=== PATIENT | female | born 1965 | race Caucasian/White ===

== ENCOUNTER 2017-08-10 14:17 | Inpatient (IN) ==
[2017-08-10] MEDS ORDERED: 0.9 % Sodium Chloride 1,000 ML IVC ONE (15:30)
[2017-08-10] MEDS ORDERED: *HR* FentaNYL (PF) 100 MCG/2 ML VIAL IVP ONE ×2 (15:30→16:58)
[2017-08-10] MEDS ORDERED: Ondansetron 4 MG/2 ML VIAL IVP ONE (15:30)
[2017-08-10] MEDS ORDERED: Isovue-370 500 ML INFUS..BTL IV ONE (15:32)
[2017-08-10 16:09] LABS: Basophils # 0.1 K/mcL (0.0-0.2); Basophils % 0.6 %; Eosinophils # 0.2 K/mcL (0.0-0.6); Eosinophils % 2.3 %; Hematocrit 33.5 % (35.3-44.9); Hemoglobin 10.8 g/dL (11.5-15.4); Immature Granulocytes % 0.7 % (0-4); Lymphocytes # 2.4 K/mcL (0.6-4.6); Lymphocytes % 27.3 %; Mean Corpuscular HGB Conc 32.2 g/dL (31.6-35.5); Mean Corpuscular Hemoglobin 28.1 pg (28.0-33.3); Mean Platelet Volume 11.2 fL (9.4-12.4); Monocytes # 0.7 K/mcL (0.0-1.3); Monocytes % 7.6 %; Neutrophils # 5.4 K/mcL (1.6-8.9); Platelet Count 230 K/mcL (140-400); Red Blood Count 3.85 M/mcL (3.82-4.97); Red Cell Distribution Width 14.2 % (11.5-14.5); Segmented Neutrophils % 61.5 %
[2017-08-10 16:28] LABS: Calcium 9.1 mg/dL (8.6-10.3); Potassium 5.2 mEq/L (3.5-5.1)
--- NOTE | 2017-08-10 16:40 | Emergency Department Note ---
Disposition Clinical Impression: Facial cellulitis, Hyperglycemia Disposition: Admitted As Inpatient Condition: Fair Referrals: Matilde Herbert MD [Primary Care Provider] - Forms: ED Satisfaction Letter Time of Disposition: 18:06 General Adult HPI - General Chief complaint: ED Skin/Abscess/Foreign Body Stated complaint: facial edema Time Seen by Provider: 08/10/17 14:47 Source: patient Limitations: no limitations Nursing Notes Reviewed: Yes Vital Signs Reviewed: Yes - History of Present Illness HPI Narrative: 52-year-old female history of insulin dependent diabetes, multiple previous abscesses, who presents complaining of erythema and swelling to her left lip and left naris patient states she has not of 10 pain, and her face. Patient states the pain is aching and dull. Patient says that she was seen by her primary care and placed on Bactrim about 2-3 days ago, she has been compliant with the pain and swelling is gone worse. She describes low-grade fevers and chills but no measured temperature. She is a history of abscesses, as a history of MRSA. Patient was transferred by private recommendation of her PCP for further evaluation, she did have blood work done yesterday that showed a mild leukocytosis 12.7, which had no blood cultures drawn, she did have a wound culture done she says. She describes no pus or purulent drainage at this time. She has no difficulty with swallowing although she does have some pain with swallowing, and trouble breathing. Onset (ago): hour(s) Location: face Pain Severity: moderate Pain Scale: 8 Quality: aching Improves with: nothing Associated symptoms: Denies: confusion, chest pain, cough, diaphoresis, nausea/ vomiting Treatments Prior to Arrival: other (Bactrim DS) - Related Data Home Medications Medication Instructions Recorded Confirmed Exenatide Microspheres [Bydureon 2 mg SQ QWEEK 08/10/17 08/10/17 Pen] Fenofibrate Nanocrystallized 160 mg PO DAILY 08/10/17 08/10/17 [Triglide] Furosemide [Lasix] 20 mg PO Q48H 08/10/17 08/10/17 Gabapentin [Neurontin] 300 mg PO TID PRN 08/10/17 08/10/17 Insulin ASPART [NovoLOG] 10 - 15 units SQ TIDWM 08/10/17 08/10/17 Insulin Glargine [Lantus] 100 units SQ BID 08/10/17 08/10/17 Losartan Potassium [Cozaar] 100 mg PO DAILY 08/10/17 08/10/17 Metoprolol Succinate 100 mg PO BID 08/10/17 08/10/17 Mupirocin [Bactroban Oint] 1 appl TP BID 08/10/17 08/10/17 Pramipexole Di-HCl [Pramipexole 0.125 mg PO DAILY 08/10/17 08/10/17 Dihydrochloride] Sulfamethoxazole/Trimeth DS 1 tab PO QID 08/10/17 08/10/17 [Bactrim Ds] Trazodone HCl 100 mg PO HS 08/10/17 08/10/17 amLODIPine [Norvasc] 5 mg PO DAILY 08/10/17 08/10/17 diazePAM [Valium] 5 mg PO BID 08/10/17 08/10/17 valACYclovir [Valtrex] 500 mg PO DAILY 08/10/17 08/10/17 Allergies Allergy/AdvReac Type Severity Reaction Status Date / Time codeine Allergy See Verified 08/10/17 17:20 Comments phenytoin [From Dilantin] Allergy Hives Verified 08/10/17 17:20 Erythromycin Base AdvReac Nausea Verified 08/10/17 17:20 All systems ED: reviewed and negative except as stated. Review of Systems: As Per HPI Constitutional: Denies: fever, chills Eyes: Denies: eye pain ENT ED: Reports: other (facial swelling lips). Denies: ear pain, throat pain Cardiovascular: Denies: chest pain, palpitations Respiratory: Denies: cough Gastrointestinal: Denies: abdominal pain, nausea Genitourinary: Denies: urgency Musculoskeletal: Denies: back pain Integumentary: Reports: as per HPI, rash Neurological: Denies: headache, weakness Past Medical History - Past Medical History Attestation: Yes The following information was validated with the patient. Source: patient Medical history: Reports: diabetes, fibromyalgia, hypertension, other Psychiatric history: Reports: anxiety - Social History Smoking Status: Never smoker Smokeless Tobacco Status: No Alcohol use: Reports: occasionally Drug use: Reports: none Physical Exam - General Limitations: no limitations General appearance: alert, anxious, obese - Head Head exam: atraumatic - Eye Eye exam: Present: normal appearance, PERRL. Absent: periorbital swelling - ENT ENT exam: normal exam, normal oropharynx - Expanded ENT Exam Nose/Mouth: 1 - erythema and moderate induration Mouth exam: Present: lip swelling, tongue normal. Absent: drooling, trismus - Neck Neck exam: Present: normal inspection, full ROM - Chest Chest inspection: Present: normal inspection, symmetric chest wall rise - Respiratory Respiratory exam: Present: normal lung sounds bilaterally. Absent: respiratory distress - Cardiovascular Cardiovascular exam: Present: regular rate, normal rhythm - Abdominal Exam Abdominal exam: Present: soft, Non-Tender - Extremities Exam Extremities exam: Present: normal inspection, full ROM - Skin Skin exam: Present: warm, erythema Course Course Narrative: Patient's a diabetic female with erythema to her left face, she has no evidence of odontogenic origin, there is a small excoriated area to the left naris, there is erythema to the left upper lip, given that this is in the concerning area for MRSA infections, and she has had a history of MRSA and is diabetic with poorly compliant and she has failed outpatient antibiotics, plan is for admission for cellulitis believe a CT scan and make sure there is no definitive abscess, plan for IV antibiotics vancomycin and Zosyn at this time. IVF, Labs. - Reevaluation(s) Reevaluation #1: Patient with no lactic acidosis mild hyper acute anemia, although her EKG has no definitive changes, the patient's no acute distress will not treat this at this time, answering vancomycin and Zosyn for cellulitis CT confirms no evidence of abscess, plan for admission at this time. Time: 18:05 Vital Signs Temperature 98.7 F 08/10/17 14:18 Pulse Rate 91 08/10/17 14:18 Respiratory Rate 15 08/10/17 14:18 Blood Pressure 126/67 08/10/17 14:18 O2 Sat by Pulse Oximetry 95 08/10/17 14:18 Temperature 98.7 F 08/10/17 14:45 Pulse Rate 100 08/10/17 15:02 Respiratory Rate 18 08/10/17 15:02 Blood Pressure 136/77 08/10/17 15:02 O2 Sat by Pulse Oximetry 96 08/10/17 15:02 Oxygen Delivery Oxygen Delivery Room Air Medical Decision Making - Medical Records Medical records reviewed: Yes I reviewed the patient's medical records. - Lab Data Lab results reviewed: Yes I reviewed the patient's lab results. Result diagrams: 08/10/17 15:57 08/10/17 15:57 Lab Results 08/10/17 08/10/17 08/10/17 Range/Units 15:57 15:57 15:57 WBC 8.8 (4.3-11.1) K/mcL RBC 3.85 (3.82-4.97) M/mcL Hgb 10.8 L (11.5-15.4) g/dL Hct 33.5 L (35.3-44.9) % MCV 87.0 (83.0-100.0) fL MCH 28.1 (28.0-33.3) pg MCHC 32.2 (31.6-35.5) g/dL RDW 14.2 (11.5-14.5) % Plt Count 230 (140-400) K/mcL MPV 11.2 (9.4-12.4) fL Immature Gran % 0.7 (0-4) % Seg Neutrophils % 61.5 % Lymphocytes % 27.3 % Monocytes % 7.6 % Eosinophils % 2.3 % Basophils % 0.6 % Neutrophils # 5.4 (1.6-8.9) K/mcL Lymphocytes # 2.4 (0.6-4.6) K/mcL Monocytes # 0.7 (0.0-1.3) K/mcL Eosinophils # 0.2 (0.0-0.6) K/mcL Basophils # 0.1 (0.0-0.2) K/mcL Sodium 130 L (136-145) mEq/L Potassium 5.2 H (3.5-5.1) mEq/L Chloride 99 (98-107) mEq/L Carbon Dioxide 22 L (23-29) mEq/L BUN 38 H (6-20) mg/dL Creatinine 1.19 (0.60-1.20) mg/dL Est GFR ( Amer) 58 L (> 60) Est GFR (Non-Af Amer) 48 L (> 60) BUN/Creatinine Ratio 32 H (6-26) Glucose 387 H (70-105) mg/dL Calculated Osmolality 295 (280-300) Lactic Acid 1.9 (0.5-2.2) mmol/L Calcium 9.1 (8.6-10.3) mg/dL - Radiology Data Radiology results reviewed: Yes I reviewed the patient's radiology results. Soft Tissue Neck CT 08/10/17 15:32 IMPRESSION: Nonspecific soft tissue thickening just inferior to the nares in the premaxillary/upper lip region. No definite fluid collections identified to suggest abscess. Findings could represent cellulitis with underlying phlegmonous material. Close clinical follow-up is recommended. No definite adjacent osseous abnormality, including no definite fracture or significant maxillary dental disease identified on this CT study. No other acute findings within the neck. D/ / 08/10/2017 17:10:49 Rommel Paulino MD / [facility] Interpreting Provider: Rommel Paulino MD - EKG Data EKG #1 EKG attestation: Yes I reviewed and interpreted this EKG. EKG shows normal: sinus rhythm Rate: normal Rhythm: NSR (97 bpm MO 160 QRS [address] QTC [address] segment elevations or depressions, no evidence of peaked T waves.)
[2017-08-10] MEDS ORDERED: Piperacillin/Tazobactam 3.375 GM in 0.9 % Sodium Chloride Mini Bag 100 ML IVPB ONE (16:47)
[2017-08-10] MEDS ORDERED: Vancomycin 1,000 MG in D5% in Water 250 ML IVPB ONE (16:47)
[2017-08-10] MEDS ORDERED: *HR* OxyCODONE/APAP 5/325 TABLET PO ONE (16:58)
--- NOTE | 2017-08-10 18:41 | Emergency Department Note ---
Disposition Clinical Impression: Facial cellulitis, Hyperglycemia Disposition: Admitted As Inpatient Condition: Fair General Adult HPI - General Chief complaint: ED Skin/Abscess/Foreign Body Stated complaint: facial edema Time Seen by Provider: 08/10/17 14:47 Source: patient Limitations: no limitations - History of Present Illness Location: face Pain Scale: 8 Quality: aching Improves with: nothing Associated symptoms: Denies: confusion, chest pain, cough, diaphoresis, nausea/ vomiting Treatments Prior to Arrival: other (Bactrim DS) - Related Data Home Medications Medication Instructions Recorded Confirmed Exenatide Microspheres [Bydureon 2 mg SQ QWEEK 08/10/17 08/10/17 Pen] Fenofibrate Nanocrystallized 160 mg PO DAILY 08/10/17 08/10/17 [Triglide] Furosemide [Lasix] 20 mg PO Q48H 08/10/17 08/10/17 Gabapentin [Neurontin] 300 mg PO TID PRN 08/10/17 08/10/17 Insulin ASPART [NovoLOG] 10 - 15 units SQ TIDWM 08/10/17 08/10/17 Insulin Glargine [Lantus] 100 units SQ BID 08/10/17 08/10/17 Losartan Potassium [Cozaar] 100 mg PO DAILY 08/10/17 08/10/17 Metoprolol Succinate 100 mg PO BID 08/10/17 08/10/17 Mupirocin [Bactroban Oint] 1 appl TP BID 08/10/17 08/10/17 Pramipexole Di-HCl [Pramipexole 0.125 mg PO DAILY 08/10/17 08/10/17 Dihydrochloride] Sulfamethoxazole/Trimeth DS 1 tab PO QID 08/10/17 08/10/17 [Bactrim Ds] Trazodone HCl 100 mg PO HS 08/10/17 08/10/17 amLODIPine [Norvasc] 5 mg PO DAILY 08/10/17 08/10/17 diazePAM [Valium] 5 mg PO BID 08/10/17 08/10/17 valACYclovir [Valtrex] 500 mg PO DAILY 08/10/17 08/10/17 Allergies Allergy/AdvReac Type Severity Reaction Status Date / Time codeine Allergy See Verified 08/10/17 17:20 Comments phenytoin [From Dilantin] Allergy Hives Verified 08/10/17 17:20 Erythromycin Base AdvReac Nausea Verified 08/10/17 17:20 Constitutional: Denies: fever, chills Eyes: Denies: eye pain ENT ED: Reports: other (facial swelling lips). Denies: ear pain, throat pain Cardiovascular: Denies: chest pain, palpitations Respiratory: Denies: cough Gastrointestinal: Denies: abdominal pain, nausea Genitourinary: Denies: urgency Musculoskeletal: Denies: back pain Integumentary: Reports: as per HPI, rash Neurological: Denies: headache, weakness Past Medical History - Past Medical History Medical history: Reports: diabetes, fibromyalgia, hypertension, other Psychiatric history: Reports: anxiety - Social History Smoking Status: Never smoker Smokeless Tobacco Status: No Alcohol use: Reports: occasionally Drug use: Reports: none Physical Exam - General Limitations: no limitations General appearance: alert, anxious, obese Course Vital Signs Temperature 98.7 F 08/10/17 14:18 Pulse Rate 91 08/10/17 14:18 Respiratory Rate 15 08/10/17 14:18 Blood Pressure 126/67 08/10/17 14:18 O2 Sat by Pulse Oximetry 95 08/10/17 14:18 Temperature 98.7 F 08/10/17 14:45 Pulse Rate 97 08/10/17 18:14 Respiratory Rate 18 08/10/17 18:14 Blood Pressure 125/71 08/10/17 18:14 O2 Sat by Pulse Oximetry 96 08/10/17 18:14 Oxygen Delivery Oxygen Delivery Room Air Medical Decision Making - Lab Data Result diagrams: 08/10/17 15:57 08/10/17 15:57 Lab Results 08/10/17 08/10/17 08/10/17 Range/Units 15:57 15:57 15:57 WBC 8.8 (4.3-11.1) K/mcL RBC 3.85 (3.82-4.97) M/mcL Hgb 10.8 L (11.5-15.4) g/dL Hct 33.5 L (35.3-44.9) % MCV 87.0 (83.0-100.0) fL MCH 28.1 (28.0-33.3) pg MCHC 32.2 (31.6-35.5) g/dL RDW 14.2 (11.5-14.5) % Plt Count 230 (140-400) K/mcL MPV 11.2 (9.4-12.4) fL Immature Gran % 0.7 (0-4) % Seg Neutrophils % 61.5 % Lymphocytes % 27.3 % Monocytes % 7.6 % Eosinophils % 2.3 % Basophils % 0.6 % Neutrophils # 5.4 (1.6-8.9) K/mcL Lymphocytes # 2.4 (0.6-4.6) K/mcL Monocytes # 0.7 (0.0-1.3) K/mcL Eosinophils # 0.2 (0.0-0.6) K/mcL Basophils # 0.1 (0.0-0.2) K/mcL Sodium 130 L (136-145) mEq/L Potassium 5.2 H (3.5-5.1) mEq/L Chloride 99 (98-107) mEq/L Carbon Dioxide 22 L (23-29) mEq/L BUN 38 H (6-20) mg/dL Creatinine 1.19 (0.60-1.20) mg/dL Est GFR ( Amer) 58 L (> 60) Est GFR (Non-Af Amer) 48 L (> 60) BUN/Creatinine Ratio 32 H (6-26) Glucose 387 H (70-105) mg/dL Calculated Osmolality 295 (280-300) Lactic Acid 1.9 (0.5-2.2) mmol/L Calcium 9.1 (8.6-10.3) mg/dL Attestation Statement - Attestation Attestation: I examined this patient and my medical decision-making was reviewed with the Resident Physician, Dr. Lewis. I agree with the documented findings, disposition and treatment plan as described except to the extent set forth below. Patient is a 52-year-old white female with history of diabetes who presents to the emergency department with a gradually worsening area of erythema pain and swelling to the left Pearson extending to the left upper lip. Patient was evaluated by her family physician 3 days ago and started on Bactrim which she has been taking as directed with gradually worsening pain and skin involvement. Patient states she has had prior skin abscesses that of been treated on an outpatient basis over the past year on her chest wall and a Bartholin's cyst. Patient with no prior episodes of sepsis or bacteremia secondary to skin infections. I agree with patient's physical exam findings as documented. There is no respiratory distress. Patient's hemodynamically stable. Patient underwent lab evaluation which shows a hyperglycemia without acidosis. White count is normal. Patient underwent CT imaging for further evaluation of what appears to be a facial cellulitis to rule out abscess or osteomyelitis. CT she findings are consistent with a cellulitis at this time with no walled off abscess. Secondary to patient's failing outpatient antibiotics and diabetes history we will admit her on IV antibiotics to the hospitalist service. Case was discussed with hospitalist who accepted patient for further management and evaluation.
[2017-08-10] MEDS ORDERED: Ondansetron 4 MG/2 ML VIAL IVP PRN (20:03)
[2017-08-10] MEDS ORDERED: Acetaminophen 325 MG TABLET PO PRN (20:03)
[2017-08-10] MEDS ORDERED: Naloxone 0.4 MG/ML INJ IVP PRN (20:03)
[2017-08-10] MEDS ORDERED: Dextrose Gel 15 GM/37.5 ML TUBE PO PRN ×2 (20:09)
[2017-08-10] MEDS ORDERED: *HR* Dextrose 50 % in Water (Syg) 50 ML SYRINGE IVP PRN (20:09)
[2017-08-10] MEDS ORDERED: D5% in Water 1,000 ML IVC PRN (20:09)
[2017-08-10] MEDS ORDERED: Gabapentin 300 MG CAPSULE PO PRN (20:11)
--- NOTE | 2017-08-10 20:19 | Internal Med History&Physical ---
Date of Encounter: 08/10/17 Time of Encounter: 19:00 Internal Medicine - H&P: HPI Chief complaint: Left-sided nostril and upper lip swelling Admitted From: Home Plans for Post Hospital Care: Home History of present illness: Ms. Brooks is a 52 year old female present to ER for left nostril and upper lip swelling. Past medical history is significant for diabetes, hypertension, SARAH. Patient said she started to have left side nostril and left-sided upper lip swelling and the pain. Patient denies injuries. Patient was treated with by mouth Bactrim but symptoms not improved. Patient has mild fever with temperature 101. Patient denies discharge from nostril. Patient has left- sided facial swelling as well, with mild blurred vision and dizziness and headache. Patient has mild nausea but no vomiting. Patient has poorly controlled diabetes and history of multiple abscess of the body. In the emergency room, CT facial has been done, result shows facial cellulitis. Patient was placed on Vanco and Zosyn and admitted to the hospital for further management. Past Med Surg Social Fam HX - Past Medical History Medical history: diabetes, fibromyalgia, hypertension, other Additional medical history: CKD3 Psychiatric history: anxiety - Past Surgical History Additional surgical history: bunionectomy - Social History Smoking Status: Never smoker Smokeless Tobacco Status: No Alcohol use: occasionally Drug use: none - Family History Mother History Unknown: Yes Internal Medicine - H&P: Meds Exenatide Microspheres [Bydureon Pen] 2 mg SQ QWEEK 08/10/17 [History] Fenofibrate Nanocrystallized [Triglide] 160 mg PO DAILY 08/10/17 [History] Furosemide [Lasix] 20 mg PO Q48H 08/10/17 [History] Gabapentin [Neurontin] 300 mg PO TID PRN 08/10/17 [History] Insulin ASPART [NovoLOG] 10 - 15 units SQ TIDWM 08/10/17 [History] Insulin Glargine [Lantus] 100 units SQ BID 08/10/17 [History] Losartan Potassium [Cozaar] 100 mg PO DAILY 08/10/17 [History] Metoprolol Succinate 100 mg PO BID 08/10/17 [History] Mupirocin [Bactroban Oint] 1 appl TP BID 08/10/17 [History] Pramipexole Di-HCl [Pramipexole Dihydrochloride] 0.125 mg PO DAILY 08/10/17 [ History] Sulfamethoxazole/Trimeth DS [Bactrim Ds] 1 tab PO QID 08/10/17 [History] Trazodone HCl 100 mg PO HS 08/10/17 [History] amLODIPine [Norvasc] 5 mg PO DAILY 08/10/17 [History] diazePAM [Valium] 5 mg PO BID 08/10/17 [History] valACYclovir [Valtrex] 500 mg PO DAILY 08/10/17 [History] 3 Allergy/AdvReac Type Severity Reaction Status Date / Time codeine Allergy See Verified 08/10/17 17:20 Comments phenytoin [From Dilantin] Allergy Hives Verified 08/10/17 17:20 Erythromycin Base AdvReac Nausea Verified 08/10/17 17:20 All Systems PM: A 10-system review of systems was performed and is negative for pertinent findings except as documented above in the HPI. - Constitutional Vitals: Temp Pulse Resp BP Pulse Ox 98.7 F 97 18 125/71 96 08/10/17 14:45 08/10/17 18:14 08/10/17 18:14 08/10/17 18:14 08/10/17 18:14 General appearance: Present: A&O X 3, morbidly obese, no acute distress, answers questions appropriately - Head Head exam: Present: atraumatic, normocephalic - Eye Eye exam: Present: PERRL, conjuntiva pink, sclera anicteric Pupils: Present: PERRL Additional comments: Patient has redness, tender bumps on left nostril with swelling and tenderness on left upper lip. - Neck Neck exam general surgery: Present: supple, trachea midline. Absent: lymphadenopathy - Respiratory Respiratory exam: Present: CTAB. Absent: accessory muscle use, rales, rhonchi, wheezes - Cardiovascular Cardiovascular exam: Present: RRR, +S1, +S2. Absent: diastolic murmur, gallop, rubs, systolic murmur - GI/Abdominal GI/Abdominal exam: Present: normal bowel sounds, soft, no peritoneal signs. Absent: distended, tenderness - Extremities Exam Extremities exam: Present: warm, radial pulses palpable and symmetrical. Absent : calf tenderness, cyanotic, pedal edema - Neurological Exam Neurological exam: Present: CN II-XII intact, oriented X3, no focal deficits. Absent: pronater drift, facial droop, speech deficit - Skin Skin exam: Present: dry, intact Internal Med - H&P Results - Labs CBC & Chem 7: 08/10/17 15:57 08/10/17 15:57 - Assessment and plan (1) Uncontrolled diabetes mellitus Current Visit: Yes Status: Acute Assessment and plan: Patient has poorly controlled diabetes. She used high dose of insulin but blood sugar is still high. Currently glucose level over 300. - Continue home dose of basal, prandial, and sliding-scale insulin. Closely monitor glucose level, adjust insulin dose accordingly. Qualifiers: Diabetes mellitus type: type 2 Diabetes mellitus assisted insulin use: without assisted use Diabetes mellitus complication status: without complication Qualified Code(s): E11.65 - Type 2 diabetes mellitus with hyperglycemia (2) Hypertension Current Visit: Yes Status: Acute Assessment and plan: Continue home medications. Qualifiers: Hypertension type: essential hypertension Qualified Code(s): I10 - Essential (primary) hypertension (3) SARAH (obstructive sleep apnea) Current Visit: Yes Status: Acute Assessment and plan: Patient said she does not use CPAP at home, nor night oxygen. Will place patient on continuous pulse oximetry monitoring. If necessary, place oxygen with facial mask. Closely monitor patient after opioid pain medication use. (4) DVT prophylaxis Current Visit: Yes Status: Acute Assessment and plan: Heparin subcutaneously (5) Facial cellulitis Current Visit: Yes Status: Acute Assessment and plan: Patient has facial swelling, especially left nostril and left upper lip. CT shows no abscess, consider cellulitis. - Place patient on Vanco and Zosyn in ER, will continue - Follow-up of blood culture results - Try to get better glucose control. - Symptomatic treatment as needed. - Time Spent With Patient Total time spent is greater than 50% in coordination of care (as documented) at patient's floor/unit and/or counseling patient: 40 minutes Greater than 35 minutes
[2017-08-10] MEDS: *HR* HYDROcodone/Acet 5/325 mg TABLET PO PRN (20:41)
[2017-08-10] MEDS ORDERED: Vancomycin 1,750 MG in 0.9 % Sodium Chloride 250 ML IVPB SCH (21:00)
[2017-08-10] MEDS: Furosemide 20 MG TABLET PO SCH (21:19)
[2017-08-10] MEDS: Insulin DETEMIR 100 UNIT/ML X5UNITS SQ SCH (21:30)
[2017-08-10] MEDS: traZODone 50 MG TABLET PO SCH (21:30)
[2017-08-10] MEDS: diazePAM 5 MG TABLET PO SCH (21:30)
[2017-08-10] MEDS: Insulin LISPRO 300 UNITS/3 ML VIAL SQ SCH (21:31)
[2017-08-10] MEDS: Metoprolol XL (24 HR) Succ 50 MG TAB.ER.24H PO SCH (21:37)
[2017-08-11] MEDS: Piperacillin/Tazobactam 3.375 GM in 0.9 % Sodium Chloride Mini Bag 100 ML IVPB SCH ×3 (00:10→15:43)
[2017-08-11] MEDS: *HR* HYDROcodone/Acet 5/325 mg TABLET PO PRN ×2 (02:51→11:34)
[2017-08-11] MEDS ORDERED: *HR* FentaNYL (PF) 100 MCG/2 ML VIAL IVP ONE (03:22)
[2017-08-11] MEDS: *HR* Heparin 5,000 UNIT/ML VIAL SQ SCH ×2 (06:35→17:11)
[2017-08-11 06:40] LABS: Basophils % 0.5 %; Eosinophils # 0.2 K/mcL (0.0-0.6); Eosinophils % 2.8 %; Hematocrit 30.4 % (35.3-44.9); Hemoglobin 9.9 g/dL (11.5-15.4); Immature Granulocytes % 0.7 % (0-4); Lymphocytes # 2.7 K/mcL (0.6-4.6); Lymphocytes % 32.9 %; Mean Corpuscular HGB Conc 32.6 g/dL (31.6-35.5); Mean Corpuscular Hemoglobin 28.3 pg (28.0-33.3); Mean Corpuscular Volume 86.9 fL (83.0-100.0); Mean Platelet Volume 10.7 fL (9.4-12.4); Monocytes # 0.7 K/mcL (0.0-1.3); Monocytes % 8.9 %; Neutrophils # 4.4 K/mcL (1.6-8.9); Platelet Count 216 K/mcL (140-400); Red Cell Distribution Width 14.3 % (11.5-14.5); Segmented Neutrophils % 54.2 %
[2017-08-11 06:58] LABS: BUN/Creatinine Ratio 34 (6-26); Blood Urea Nitrogen 25 mg/dL (6-20); Calcium 9.2 mg/dL (8.6-10.3); Carbon Dioxide 23 mEq/L (23-29); Chloride 102 mEq/L (98-107); Glucose 199 mg/dL (70-105); Magnesium 1.8 mg/dL (1.6-2.6); Osmolality,Calculated 284 (280-300); Potassium 4.8 mEq/L (3.5-5.1); Sodium 132 mEq/L (136-145); eGFR For African Americans > 60 (> 60); eGFR For Non-African Americans > 60 (> 60)
[2017-08-11] MEDS: *HR* OxyCODONE/APAP 5/325 TABLET PO PRN ×2 (08:13→15:43)
[2017-08-11] MEDS: amLODIPine 5 MG TABLET PO SCH (08:18)
[2017-08-11] MEDS: Fenofibrate 54 MG TABLET PO SCH (08:18)
[2017-08-11] MEDS: valACYclovir 500 MG TABLET PO SCH (08:18)
[2017-08-11] MEDS: diazePAM 5 MG TABLET PO SCH ×2 (08:21→21:55)
[2017-08-11] MEDS: Metoprolol XL (24 HR) Succ 50 MG TAB.ER.24H PO SCH ×2 (08:21→21:55)
[2017-08-11] MEDS: Insulin LISPRO 300 UNITS/3 ML VIAL SQ SCH ×7 (08:23→21:58)
[2017-08-11] MEDS: Insulin DETEMIR 100 UNIT/ML X5UNITS SQ SCH ×2 (08:26→21:56)
[2017-08-11] MEDS ORDERED: Ketorolac 30 MG/ML VIAL IVP ONE (12:50)
--- NOTE | 2017-08-11 17:23 | Internal Med Progress Note ---
Date of Encounter: 08/11/17 Time of Encounter: 11:00 - Assessment and plan (1) Facial cellulitis Current Visit: Yes Status: Acute Assessment and plan: Patient has facial swelling, especially left nostril and left upper lip. CT shows no abscess, consider cellulitis. Will continue vancomycin and Zosyn Will also give one dose of IV decadron and bactroban (2) Uncontrolled diabetes mellitus Current Visit: Yes Status: Acute Assessment and plan: Patient has poorly controlled diabetes; A1c of 10.2 on 08/09/17 Continue home dose of basal, prandial, and sliding-scale insulin. Qualifiers: Diabetes mellitus type: type 2 Diabetes mellitus alf insulin use: without alf use Diabetes mellitus complication status: without complication Qualified Code(s): E11.65 - Type 2 diabetes mellitus with hyperglycemia (3) Hypertension Current Visit: Yes Status: Acute Assessment and plan: Continue beta kaycee Qualifiers: Hypertension type: essential hypertension Qualified Code(s): I10 - Essential (primary) hypertension (4) SARAH (obstructive sleep apnea) Current Visit: Yes Status: Acute Assessment and plan: Patient said she does not use CPAP at home, nor night oxygen. Will place patient on continuous pulse oximetry monitoring. (5) DVT prophylaxis Current Visit: Yes Status: Acute Assessment and plan: Heparin subcutaneously - Time Spent With Patient Total time spent is greater than 50% in coordination of care (as documented) at patient's floor/unit and/or counseling patient: - Subjective Interval history: Patient reports of pain in left upper lip/nose and inferior region to left orbit - Constitutional Vitals: Temp Pulse Resp BP Pulse Ox 97.5 F L 92 15 114/73 93 08/11/17 16:46 08/11/17 16:46 08/11/17 16:46 08/11/17 16:46 08/11/17 16:46 General appearance: Present: A&O X 3, morbidly obese, no acute distress, answers questions appropriately - Respiratory Respiratory exam: Present: CTAB. Absent: accessory muscle use, rales, rhonchi, wheezes - Cardiovascular Cardiovascular exam: Present: RRR, +S1, +S2. Absent: diastolic murmur, gallop, rubs, systolic murmur - Skin Skin exam: Present: erythema (Patient with erythema and edematous region of left upper lip in addition to left nare and region inferior to left orbit) Internal Medicine: Result - Labs CBC & Chem 7: 08/11/17 06:16 08/11/17 06:16 Labs: Short CBC 08/11/17 Range/Units 06:16 WBC 8.1 (4.3-11.1) K/mcL Hgb 9.9 L (11.5-15.4) g/dL Hct 30.4 L (35.3-44.9) % Plt Count 216 (140-400) K/mcL Neutrophils # 4.4 (1.6-8.9) K/mcL BMP 08/11/17 06:16 Sodium 132 L Potassium 4.8 Chloride 102 Carbon Dioxide 23 BUN 25 H Creatinine 0.73 Glucose 199 H Calcium 9.2 Consult Discharge Plan - Plan Referrals: Matilde Herbert MD [Primary Care Provider] -
[2017-08-11] MEDS ORDERED: Dexamethasone 4 MG/ML VIAL IVP ONE (17:38)
[2017-08-11] MEDS: traZODone 50 MG TABLET PO SCH (21:55)
[2017-08-11] MEDS: Ketorolac 30 MG/ML VIAL IM PRN (21:58)
[2017-08-12] MEDS: *HR* OxyCODONE/APAP 5/325 TABLET PO PRN ×4 (00:14→23:43)
[2017-08-12] MEDS: Piperacillin/Tazobactam 3.375 GM in 0.9 % Sodium Chloride Mini Bag 100 ML IVPB SCH ×4 (00:15→23:43)
[2017-08-12] MEDS: Ketorolac 30 MG/ML VIAL IM PRN (04:39)
[2017-08-12] MEDS: *HR* Heparin 5,000 UNIT/ML VIAL SQ SCH ×2 (06:13→16:41)
[2017-08-12 07:26] LABS: Vancomycin,Trough 8 mcg/mL (5-10)
[2017-08-12 07:58] LABS: BUN/Creatinine Ratio 27 (6-26); Blood Urea Nitrogen 24 mg/dL (6-20); eGFR For African Americans > 60 (> 60); eGFR For Non-African Americans > 60 (> 60)
[2017-08-12] MEDS: Fenofibrate 54 MG TABLET PO SCH (08:30)
[2017-08-12] MEDS: diazePAM 5 MG TABLET PO SCH ×2 (08:30→20:05)
[2017-08-12] MEDS: valACYclovir 500 MG TABLET PO SCH (08:30)
[2017-08-12] MEDS: amLODIPine 5 MG TABLET PO SCH (08:30)
[2017-08-12] MEDS: Metoprolol XL (24 HR) Succ 50 MG TAB.ER.24H PO SCH ×2 (08:32→20:05)
[2017-08-12] MEDS: Insulin DETEMIR 100 UNIT/ML X5UNITS SQ SCH ×2 (08:36→20:08)
[2017-08-12] MEDS: Insulin LISPRO 300 UNITS/3 ML VIAL SQ SCH ×8 (08:36→20:10)
[2017-08-12 09:51] LABS: Basophils % 0.2 %; Hematocrit 32.4 % (35.3-44.9); Hemoglobin 10.7 g/dL (11.5-15.4); Immature Granulocytes % 0.8 % (0-4); Lymphocytes # 2.1 K/mcL (0.6-4.6); Lymphocytes % 23.4 %; Mean Corpuscular Hemoglobin 28.4 pg (28.0-33.3); Mean Corpuscular Volume 85.9 fL (83.0-100.0); Mean Platelet Volume 10.5 fL (9.4-12.4); Monocytes # 0.3 K/mcL (0.0-1.3); Monocytes % 3.5 %; Neutrophils # 6.4 K/mcL (1.6-8.9); Platelet Count 265 K/mcL (140-400); Red Blood Count 3.77 M/mcL (3.82-4.97); Red Cell Distribution Width 13.8 % (11.5-14.5); Segmented Neutrophils % 72.1 %
[2017-08-12 10:01] LABS: BUN/Creatinine Ratio 29 (6-26); Blood Urea Nitrogen 25 mg/dL (6-20); Calcium 9.5 mg/dL (8.6-10.3); Carbon Dioxide 20 mEq/L (23-29); Chloride 102 mEq/L (98-107); Glucose 345 mg/dL (70-105); Osmolality,Calculated 290 (280-300); Potassium 5.6 mEq/L (3.5-5.1); Sodium 131 mEq/L (136-145); eGFR For African Americans > 60 (> 60); eGFR For Non-African Americans > 60 (> 60)
[2017-08-12 10:02] LABS: Troponin I < 0.03 ng/mL (< 0.04)
[2017-08-12] MEDS: Ketorolac 30 MG/ML VIAL IVP PRN (11:32)
--- NOTE | 2017-08-12 15:50 | Internal Med Progress Note ---
Date of Encounter: 08/12/17 Time of Encounter: 11:00 - Assessment and plan (1) Facial cellulitis Current Visit: Yes Status: Acute Assessment and plan: Patient with improvement in facial swelling, especially left nostril and left upper lip. CT shows no abscess Will continue 1 more additional day of IV vancomycin and Zosyn; one time dose of IV Decadron given 08/11/17 (2) Uncontrolled diabetes mellitus Current Visit: Yes Status: Acute Assessment and plan: Patient has poorly controlled diabetes; A1c of 10.2 on 08/09/17 Continue home dose of basal, prandial, and sliding-scale insulin. Qualifiers: Diabetes mellitus type: type 2 Diabetes mellitus snf insulin use: without snf use Diabetes mellitus complication status: without complication Qualified Code(s): E11.65 - Type 2 diabetes mellitus with hyperglycemia (3) Hypertension Current Visit: Yes Status: Acute Assessment and plan: Continue beta kaycee Qualifiers: Hypertension type: essential hypertension Qualified Code(s): I10 - Essential (primary) hypertension (4) SARAH (obstructive sleep apnea) Current Visit: Yes Status: Acute Assessment and plan: Patient said she does not use CPAP at home, nor night oxygen. Will place patient on continuous pulse oximetry monitoring. (5) DVT prophylaxis Current Visit: Yes Status: Acute Assessment and plan: Heparin subcutaneously - Time Spent With Patient Total time spent is greater than 50% in coordination of care (as documented) at patient's floor/unit and/or counseling patient: - Subjective Interval history: Patient reports dramatic improvement in left upper lip/nose and inferior region to left orbit - Constitutional Vitals: Temp Pulse Resp BP Pulse Ox 98.0 F 97 14 108/66 95 08/12/17 12:26 08/12/17 12:26 08/12/17 12:26 08/12/17 12:26 08/12/17 12:26 General appearance: Present: A&O X 3, morbidly obese, no acute distress, answers questions appropriately - Respiratory Respiratory exam: Present: CTAB. Absent: accessory muscle use, rales, rhonchi, wheezes - Cardiovascular Cardiovascular exam: Present: RRR, +S1, +S2. Absent: diastolic murmur, gallop, rubs, systolic murmur - Skin Skin exam: Present: erythema (Patient with decreased edema and erythema and left upper lip/left there/left inferior orbit) Internal Medicine: Result - Labs CBC & Chem 7: 08/12/17 09:41 08/12/17 09:26 Labs: Short CBC 08/12/17 Range/Units 09:41 WBC 8.8 (4.3-11.1) K/mcL Hgb 10.7 L (11.5-15.4) g/dL Hct 32.4 L (35.3-44.9) % Plt Count 265 (140-400) K/mcL Neutrophils # 6.4 (1.6-8.9) K/mcL BMP 08/12/17 08/12/17 06:34 09:26 Sodium 131 L Potassium 5.6 H Chloride 102 Carbon Dioxide 20 L BUN 24 H 25 H Creatinine 0.89 0.86 Glucose 345 H Calcium 9.5 Cardiac Enzymes 08/11/17 08/12/17 08/12/17 Range/Units 20:23 03:03 09:26 Troponin I < 0.03 < 0.03 < 0.03 (< 0.04) ng/mL Consult Discharge Plan - Plan Referrals: Matilde Herbert MD [Primary Care Provider] -
[2017-08-12] MEDS: traZODone 50 MG TABLET PO SCH (20:05)
[2017-08-12] MEDS: Furosemide 20 MG TABLET PO SCH (20:20)
[2017-08-13] MEDS: Ketorolac 30 MG/ML VIAL IVP PRN (04:37)
[2017-08-13] MEDS: *HR* Heparin 5,000 UNIT/ML VIAL SQ SCH (05:42)
[2017-08-13] MEDS: *HR* OxyCODONE/APAP 5/325 TABLET PO PRN ×2 (06:11→13:34)
[2017-08-13 07:18] LABS: BUN/Creatinine Ratio 35 (6-26); Blood Urea Nitrogen 25 mg/dL (6-20); eGFR For African Americans > 60 (> 60); eGFR For Non-African Americans > 60 (> 60)
--- NOTE | 2017-08-13 08:02 | Electrocardiograph Report ---
[place] [address] Test Date: 2017-08-10 Pat Name: Charline Brooks Department: 103 Room: 3A Gender: F Title Supervisor: FINN : 1965 Requested By: Obie Lewis Order Number: [id number] Reading MD: Ancelmo Ndiaye Measurements Intervals [place] Rate: 97 P: 18 SC: 160 QRS: 10 QRSD: 92 T: 29 QT: 362 QTc: 417 Interpretive Statements SINUS RHYTHM Electronically Signed On 08-13-2017 8:00:59 EDT by Ancelmo Ndiaye
[2017-08-13] MEDS: Insulin LISPRO 300 UNITS/3 ML VIAL SQ SCH ×4 (08:37→11:43)
[2017-08-13] MEDS: diazePAM 5 MG TABLET PO SCH (08:39)
[2017-08-13] MEDS: Metoprolol XL (24 HR) Succ 50 MG TAB.ER.24H PO SCH (08:39)
[2017-08-13] MEDS: valACYclovir 500 MG TABLET PO SCH (08:39)
[2017-08-13] MEDS: amLODIPine 5 MG TABLET PO SCH (08:39)
[2017-08-13] MEDS: Fenofibrate 54 MG TABLET PO SCH (08:39)
[2017-08-13] MEDS: Piperacillin/Tazobactam 3.375 GM in 0.9 % Sodium Chloride Mini Bag 100 ML IVPB SCH (08:40)
[2017-08-13] MEDS: Insulin DETEMIR 100 UNIT/ML X5UNITS SQ SCH (08:42)
--- NOTE | 2017-08-13 09:46 | Electrocardiograph Report ---
[address] [address] Test Date: 2017-08-11 Pat Name: Charline Brooks Department: 115 Room: 3A Gender: F Food Handler: : 1965 Requested By: [id number] Order Number: [id number] Reading MD: Baldomero Orona Measurements Intervals [place] Rate: 94 P: 58 CA: 183 QRS: 39 QRSD: 89 T: 44 QT: 345 QTc: 397 Interpretive Statements SINUS RHYTHM Electronically Signed On 08-13-2017 9:44:55 EDT by Baldomero Orona
[2017-08-13 11:23] VITALS: BP 143/86
--- NOTE | 2017-08-13 11:59 | Discharge Summary ---
- NOTES TO OUTPATIENT PROVIDER Notes to Outpatient Provider: none Date of Encounter: 08/13/17 Time of Encounter: 11:00 - Discharge Diagnosis (1) Facial cellulitis Priority: Primary Status: Acute (2) Uncontrolled diabetes mellitus Priority: Secondary Status: Acute Qualifiers: Diabetes mellitus type: type 2 Diabetes mellitus spindle repairer insulin use: without skilled nursing use Diabetes mellitus complication status: without complication Qualified Code(s): E11.65 - Type 2 diabetes mellitus with hyperglycemia (3) Hypertension Priority: Secondary Status: Acute Qualifiers: Hypertension type: essential hypertension Qualified Code(s): I10 - Essential (primary) hypertension (4) SARAH (obstructive sleep apnea) Priority: Secondary Status: Acute Hospital course: Patient is a 52-year-old female with past medical history significant for hypertension, diabetes and fibromyalgia who presents the ER on 08/10/17 due to facial edema. Patient said she started to have left side nostril and left-sided upper lip swelling and the pain. Patient denies injuries. Patient was treated with by mouth Bactrim but symptoms not improved. Patient has mild fever with temperature 101. Patient denies discharge from nostril. Patient has left- sided facial swelling as well, with mild blurred vision and dizziness and headache. Patient has mild nausea but no vomiting. Patient has poorly controlled diabetes and history of multiple abscess of the body. In the emergency room, CT facial has been done, result shows facial cellulitis. Patient was placed on Vanco and Zosyn and admitted to the hospital for further management. During patients hospital stay her facial edema drastically improved and erythema diminished on IV vancomycin and IV Zosyn. Patient also with less pain. She will be discharged to complete a 10 day course of Bactrim. - Time Spent with Patient Total time spent providing and/or coordinating discharge services: Less than 30 minutes - Discharge Medications Prescriptions: OxyCODONE/APAP 5/325 [Percocet 5/325 MG] 1 each PO Q8HR PRN 5 Days #15 tablet PRN Reason: Pain Sulfamethoxazole/Trimeth DS [Bactrim Ds] 1 tab PO BID 10 Days #20 tablet Home Medications: Exenatide Microspheres [Bydureon Pen] 2 mg SQ QWEEK 08/10/17 [History] Fenofibrate Nanocrystallized [Triglide] 160 mg PO DAILY 08/10/17 [History] Furosemide [Lasix] 20 mg PO Q48H 08/10/17 [History] Gabapentin [Neurontin] 300 mg PO TID PRN 08/10/17 [History] Insulin ASPART [NovoLOG] 10 - 15 units SQ TIDWM 08/10/17 [History] Insulin Glargine [Lantus] 100 units SQ BID 08/10/17 [History] Losartan Potassium [Cozaar] 100 mg PO DAILY 08/10/17 [History] Metoprolol Succinate 100 mg PO BID 08/10/17 [History] Mupirocin [Bactroban Oint] 1 appl TP BID 08/10/17 [History] Pramipexole Di-HCl [Pramipexole Dihydrochloride] 0.125 mg PO DAILY 08/10/17 [ History] Trazodone HCl 100 mg PO HS 08/10/17 [History] amLODIPine [Norvasc] 5 mg PO DAILY 08/10/17 [History] diazePAM [Valium] 5 mg PO BID 08/10/17 [History] valACYclovir [Valtrex] 500 mg PO DAILY 08/10/17 [History] OxyCODONE/APAP 5/325 [Percocet 5/325 MG] 1 each PO Q8HR PRN 5 Days #15 tablet [Rx] Sulfamethoxazole/Trimeth DS [Bactrim Ds] 1 tab PO BID 10 Days #20 tablet [Rx] Allergies/Adverse Reactions: 3 Allergy/AdvReac Type Severity Reaction Status Date / Time codeine Allergy See Verified 08/10/17 17:20 Comments phenytoin [From Dilantin] Allergy Hives Verified 08/10/17 17:20 Erythromycin Base AdvReac Nausea Verified 08/10/17 17:20 Date of admission: 08/10/17 20:03 Primary care physician: Matilde Herbert MD - Constitutional Vitals: Temp Pulse Resp BP Pulse Ox 98.2 F 87 16 143/86 98 08/13/17 11:22 08/13/17 11:22 08/13/17 11:22 08/13/17 11:22 08/13/17 11:22 General appearance: Present: A&O X 3, morbidly obese, no acute distress, answers questions appropriately - Skin Skin exam: Absent: erythema (face) - Patient Status Disposition: Home, Self-Care Condition: Fair - Discharge Instructions Instructions: Cellulitis (DC) Follow Up With: Matilde Herbert MD [Primary Care Provider] - 08/21/17 10:00 am Forms: Work/School Release
[2017-08-13] MEDS ORDERED: Aminoglycoside Consult 1 EACH MC ONE (13:48)
== END 2017-08-13 13:49 | disposition home or self-care (01) | DRG 603 ==
LOC: 3ANU 14:17 → EMEROO 14:17 → 3ANU 20:00 → SUATTDRO 20:03
PROVIDERS: ADMIT Family Medicine; ATTEND Hospitalist

== ENCOUNTER 2019-01-15 | Inpatient (IN) ==
[2019-01-15] MEDS ORDERED: 0.9 % Sodium Chloride 1,000 ML IVC ONE ×2 (00:35→03:40)
[2019-01-15] MEDS ORDERED: methylPREDNISolone 125 MG/2 ML VIAL IVP ONE (00:35)
[2019-01-15] MEDS ORDERED: Ipratropium/Albuterol Neb 3 ML IH ONE ×2 (00:35→04:41)
[2019-01-15] MEDS ORDERED: Isovue-370 500 ML BOTTLE IVP ONE (00:36)
[2019-01-15 00:51] LABS: Bilirubin,Urine Negative (Negative); Blood,Urine Negative (Negative); Clarity,Urine Clear (Clear); Color,Urine Yellow (Yellow); Glucose,Urine (UA) Normal (Normal); Ketones,Urine Trace mg/dL (Negative); Leukocyte Esterase,Urine Negative (Negative); Nitrite,Urine Negative (Negative); Protein,Urine >=1000 mg/dL (Neg-Trace); Specific Gravity,Urine > 1.030 (1.010-1.025); Urobilinogen,Urine Normal (Normal)
[2019-01-15 00:52] LABS: Bacteria,Urine None Seen per hpf (None-Few); Hyaline Casts,Urine None Seen per lpf (None-Few); Squamous Epithelial Cell,Urine Many per lpf (None-Few); WBC,Urine 0-3 per hpf (0-3)
[2019-01-15 00:58] LABS: Basophils # 0.1 K/mcL (0.0-0.2); Eosinophils # 0.7 K/mcL (0.0-0.6); Eosinophils % 5.8 %; Hemoglobin 12.3 g/dL (11.5-15.4); Immature Granulocytes % 0.7 % (0-4); Lymphocytes # 3.2 K/mcL (0.6-4.6); Lymphocytes % 27.3 %; Mean Corpuscular HGB Conc 32.4 g/dL (31.6-35.5); Mean Corpuscular Hemoglobin 28.7 pg (28.0-33.3); Mean Corpuscular Volume 88.6 fL (83.0-100.0); Mean Platelet Volume 9.9 fL (9.4-12.4); Monocytes # 0.7 K/mcL (0.0-1.3); Monocytes % 6.2 %; Platelet Count 233 K/mcL (140-400); Red Blood Count 4.29 M/mcL (3.82-4.97); Red Cell Distribution Width 14.2 % (11.5-14.5); White Blood Count 11.9 K/mcL (4.3-11.1)
[2019-01-15] MEDS ORDERED: levoFLOXacin 750 MG/150 ML 750 MG/150 ML BAG IVPB ONE (01:01)
[2019-01-15 01:08] LABS: INR 1.1; Prothrombin Time 12.2 Seconds (9.4-12.1)
[2019-01-15 01:37] LABS: BUN/Creatinine Ratio 21 (6-26); Blood Urea Nitrogen 10 mg/dL (6-20); Carbon Dioxide 22 mEq/L (23-29); Chloride 102 mEq/L (98-107); Glucose 172 mg/dL (70-105); Osmolality,Calculated 285 (280-300); Potassium 3.5 mEq/L (3.5-5.1); Sodium 136 mEq/L (136-145); Troponin I 0.04 ng/mL (< 0.04); eGFR For African Americans > 60 (> 60); eGFR For Non-African Americans > 60 (> 60)
[2019-01-15] MEDS ORDERED: 0.9 % Sodium Chloride Mini Bag 100 ML ONE (02:34)
[2019-01-15] MEDS: Piperacillin/Tazobactam 3.375 GM in 0.9 % Sodium Chloride Mini Bag 100 ML IVPB ONE ×4 (02:37→02:43)
[2019-01-15] MEDS ORDERED: Aspirin 325 MG TABLET PO ONE (02:46)
[2019-01-15] MEDS ORDERED: Aminoglycoside Consult 1 EACH MC ONE (06:30)
[2019-01-15] MEDS ORDERED: Dextrose Gel 15 GM/37.5 ML TUBE PO PRN ×2 (08:37)
[2019-01-15] MEDS ORDERED: D5% in Water 1,000 ML IVC PRN (08:37)
[2019-01-15] MEDS ORDERED: *HR* Dextrose 50 % in Water (Syg) 50 ML SYRINGE IVP PRN (08:37)
[2019-01-15] MEDS: 0.9 % Sodium Chloride 1,000 ML IVC SCH ×2 (09:00→23:12)
[2019-01-15 09:23] LABS: Basophils # 0.1 K/mcL (0.0-0.2); Basophils % 0.4 %; Eosinophils % 0.2 %; Hematocrit 36.6 % (35.3-44.9); Hemoglobin 12.5 g/dL (11.5-15.4); Immature Granulocytes % 1.4 % (0-4); Lymphocytes # 1.6 K/mcL (0.6-4.6); Lymphocytes % 13.2 %; Mean Corpuscular HGB Conc 34.2 g/dL (31.6-35.5); Mean Corpuscular Hemoglobin 29.2 pg (28.0-33.3); Mean Corpuscular Volume 85.5 fL (83.0-100.0); Mean Platelet Volume 9.9 fL (9.4-12.4); Monocytes # 0.2 K/mcL (0.0-1.3); Monocytes % 1.4 %; Neutrophils # 9.9 K/mcL (1.6-8.9); Platelet Count 256 K/mcL (140-400); Red Blood Count 4.28 M/mcL (3.82-4.97); Red Cell Distribution Width 14.4 % (11.5-14.5); Segmented Neutrophils % 83.4 %; White Blood Count 11.8 K/mcL (4.3-11.1)
[2019-01-15 09:39] LABS: Albumin 3.8 g/dL (3.5-5.7); Albumin/Globulin Ratio 1.3 (1.1-2.2); Bilirubin,Direct 0.1 mg/dL (0.0-0.2); Bilirubin,Indirect 0.1 mg/dL (0.0-1.0); Bilirubin,Total 0.2 mg/dL (0.3-1.0); Globulin 2.9 g/dL (2.4-3.5); Total Protein 6.7 g/dL (6.4-8.9)
[2019-01-15 09:40] LABS: Magnesium 1.4 mg/dL (1.6-2.6); Phosphorous 4.1 mg/dL (2.7-4.5)
[2019-01-15] MEDS: *HR* Heparin 5,000 UNIT/ML VIAL SQ SCH ×2 (09:46→16:50)
[2019-01-15] MEDS: Metoprolol XL (24 HR) Succ 50 MG TAB.ER.24H PO SCH ×2 (09:47→22:06)
[2019-01-15] MEDS: Piperacillin/Tazobactam 3.375 GM in 0.9 % Sodium Chloride Mini Bag 100 ML IVPB SCH ×2 (09:51→16:27)
[2019-01-15] MEDS: Levalbuterol Neb 0.63 MG/3 ML IH SCH ×3 (10:24→21:25)
[2019-01-15] MEDS: *HR* OxyCODONE/APAP 5/325 TABLET PO PRN ×2 (10:49→22:05)
[2019-01-15] MEDS: diazePAM 5 MG TABLET PO PRN (10:50)
[2019-01-15] MEDS ORDERED: Insulin LISPRO 300 UNITS/3 ML VIAL SQ SCH (12:00)
[2019-01-15] MEDS: Isovue-370 500 ML BOTTLE IVP ONE ×2 (12:50→12:51)
[2019-01-15 13:07] LABS: Thyroid Stimulating Hormone 1.215 mcIU/mL (0.340-5.600)
[2019-01-15] MEDS: Insulin LISPRO 300 UNITS/3 ML VIAL SQ SCH ×3 (13:53→16:54)
[2019-01-15 18:10] LABS: Adenovirus Not Detected (Not Detect); Coronavirus 229E Not Detected (Not Detect); Coronavirus HKU1 Not Detected (Not Detect); Coronavirus NL63 Not Detected (Not Detect); Coronavirus OC43 Not Detected (Not Detect); Human Metapneumovirus Not Detected (Not Detect); Human Rhinovirus/Enterovirus Not Detected (Not Detect); Influenza A Subtype 2009 H1 Not Detected (Not Detect); Influenza A Untypeable Not Detected (Not Detect); Influenza B Not Detected (Not Detect)
[2019-01-15 18:11] LABS: Bordetella Pertussis Not Detected (Not Detect); Chlamydophila pneumoniae Not Detected (Not Detect); Mycoplasma pneumoniae Not Detected (Not Detect); Parainfluenza Virus 1 Not Detected (Not Detect); Parainfluenza Virus 2 Not Detected (Not Detect); Parainfluenza Virus 3 Not Detected (Not Detect); Parainfluenza Virus 4 Not Detected (Not Detect); Respiratory Syncytial Virus Not Detected (Not Detect)
[2019-01-15] MEDS ORDERED: Insulin DETEMIR 100 UNIT/ML X5UNITS SQ SCH (21:00)
[2019-01-15] MEDS: Gabapentin 300 MG CAPSULE PO SCH (21:46)
[2019-01-15] MEDS: traZODone 50 MG TABLET PO SCH (22:06)
[2019-01-15] MEDS: Ondansetron 4 MG/2 ML VIAL IVP PRN (23:07)
[2019-01-16] MEDS: Insulin DETEMIR 100 UNIT/ML X5UNITS SQ SCH ×2 (00:44→21:50)
[2019-01-16] MEDS: Piperacillin/Tazobactam 3.375 GM in 0.9 % Sodium Chloride Mini Bag 100 ML IVPB SCH ×3 (00:44→16:51)
[2019-01-16] MEDS: diazePAM 5 MG TABLET PO PRN ×2 (00:46→21:50)
[2019-01-16 00:53] LABS: Basophils # 0.1 K/mcL (0.0-0.2); Basophils % 0.6 %; Eosinophils # 0.1 K/mcL (0.0-0.6); Eosinophils % 0.6 %; Hematocrit 35.1 % (35.3-44.9); Hemoglobin 11.9 g/dL (11.5-15.4); Immature Granulocytes % 0.6 % (0-4); Lymphocytes # 3.5 K/mcL (0.6-4.6); Lymphocytes % 27.2 %; Mean Corpuscular HGB Conc 33.9 g/dL (31.6-35.5); Mean Corpuscular Hemoglobin 29.3 pg (28.0-33.3); Mean Corpuscular Volume 86.5 fL (83.0-100.0); Mean Platelet Volume 9.7 fL (9.4-12.4); Monocytes # 0.8 K/mcL (0.0-1.3); Monocytes % 6.1 %; Neutrophils # 8.4 K/mcL (1.6-8.9); Platelet Count 275 K/mcL (140-400); Red Blood Count 4.06 M/mcL (3.82-4.97); Red Cell Distribution Width 14.6 % (11.5-14.5); Segmented Neutrophils % 64.9 %
[2019-01-16 01:13] LABS: BUN/Creatinine Ratio 26 (6-26); Blood Urea Nitrogen 14 mg/dL (6-20); Calcium 8.3 mg/dL (8.6-10.3); Carbon Dioxide 24 mEq/L (23-29); Chloride 106 mEq/L (98-107); Glucose 242 mg/dL (70-105); Osmolality,Calculated 298 (280-300); Potassium 3.8 mEq/L (3.5-5.1); Sodium 140 mEq/L (136-145); eGFR For African Americans > 60 (> 60); eGFR For Non-African Americans > 60 (> 60)
[2019-01-16] MEDS: Levalbuterol Neb 0.63 MG/3 ML IH SCH ×4 (03:52→22:13)
[2019-01-16] MEDS: *HR* OxyCODONE/APAP 5/325 TABLET PO PRN ×2 (05:51→18:53)
[2019-01-16] MEDS: *HR* Heparin 5,000 UNIT/ML VIAL SQ SCH ×2 (05:51→16:52)
[2019-01-16] MEDS: Insulin LISPRO 300 UNITS/3 ML VIAL SQ SCH ×6 (08:39→16:56)
[2019-01-16] MEDS: Metoprolol XL (24 HR) Succ 50 MG TAB.ER.24H PO SCH ×2 (08:44→21:49)
[2019-01-16] MEDS: Aspirin Enteric Coated 81 MG Tablet PO SCH (08:44)
[2019-01-16] MEDS ORDERED: MethylPREDNISolone 40 MG/ML VIAL IVP SCH (09:00)
[2019-01-16] MEDS: traZODone 50 MG TABLET PO SCH (21:49)
[2019-01-16] MEDS: Gabapentin 300 MG CAPSULE PO SCH (21:49)
[2019-01-17] MEDS: Piperacillin/Tazobactam 3.375 GM in 0.9 % Sodium Chloride Mini Bag 100 ML IVPB SCH ×2 (01:18→07:52)
[2019-01-17] MEDS: Levalbuterol Neb 0.63 MG/3 ML IH SCH ×4 (04:05→22:39)
[2019-01-17 04:44] LABS: Basophils # 0.1 K/mcL (0.0-0.2); Basophils % 0.6 %; Eosinophils # 0.1 K/mcL (0.0-0.6); Eosinophils % 0.8 %; Hematocrit 34.5 % (35.3-44.9); Hemoglobin 11.1 g/dL (11.5-15.4); Lymphocytes # 4.2 K/mcL (0.6-4.6); Mean Corpuscular HGB Conc 32.2 g/dL (31.6-35.5); Mean Corpuscular Hemoglobin 28.7 pg (28.0-33.3); Mean Corpuscular Volume 89.1 fL (83.0-100.0); Mean Platelet Volume 9.8 fL (9.4-12.4); Monocytes # 0.6 K/mcL (0.0-1.3); Neutrophils # 7.3 K/mcL (1.6-8.9); Platelet Count 226 K/mcL (140-400); Red Blood Count 3.87 M/mcL (3.82-4.97); Red Cell Distribution Width 14.4 % (11.5-14.5); Segmented Neutrophils % 58.6 %; White Blood Count 12.5 K/mcL (4.3-11.1)
[2019-01-17 05:02] LABS: BUN/Creatinine Ratio 25 (6-26); Blood Urea Nitrogen 13 mg/dL (6-20); Calcium 8.9 mg/dL (8.6-10.3); Carbon Dioxide 24 mEq/L (23-29); Chloride 102 mEq/L (98-107); Glucose 197 mg/dL (70-105); Osmolality,Calculated 290 (280-300); Potassium 3.8 mEq/L (3.5-5.1); Sodium 137 mEq/L (136-145); eGFR For African Americans > 60 (> 60); eGFR For Non-African Americans > 60 (> 60)
[2019-01-17] MEDS: *HR* Heparin 5,000 UNIT/ML VIAL SQ SCH ×2 (05:51→17:00)
[2019-01-17] MEDS: *HR* OxyCODONE/APAP 5/325 TABLET PO PRN ×2 (07:50→18:19)
[2019-01-17] MEDS: Aspirin Enteric Coated 81 MG Tablet PO SCH (07:50)
[2019-01-17] MEDS: amLODIPine 5 MG TABLET PO SCH (07:50)
[2019-01-17] MEDS: Metoprolol XL (24 HR) Succ 50 MG TAB.ER.24H PO SCH ×2 (07:51→20:14)
[2019-01-17] MEDS: Insulin LISPRO 300 UNITS/3 ML VIAL SQ SCH ×6 (07:52→17:00)
[2019-01-17] MEDS: Ondansetron 4 MG/2 ML VIAL IVP PRN ×2 (09:56→18:19)
[2019-01-17] MEDS ORDERED: Furosemide 40 MG/4 ML VIAL IVP ONE ×2 (10:30→21:43)
[2019-01-17 11:05] LABS: Adenovirus F 40/41 PCR Not detected (Not detect); Astrovirus PCR Not detected (Not detect); C.difficile Toxin A/B Gene PCR Not detected (Not detect); Campylobacter by PCR Not detected (Not detect); Cryptosporidium by PCR Not detected (Not detect); Cyclospora cayetanensis PCR Not detected (Not detect); E. coli O157 by PCR Not detected (Not detect); Entamoeba histolytica PCR Not detected (Not detect); Enteroaggregative E.coli(EAEC) Not detected (Not detect); Enteropathogenic E.coli(EPEC) Not detected (Not detect); Enterotoxigenic E.coli (ETEC) Not detected (Not detect); Giardia lamblia PCR Not detected (Not detect); Norovirus GI/GII PCR Not detected (Not detect); Plesiomonas shigelloides PCR Not detected (Not detect); Rotavirus A PCR Not detected (Not detect); Salmonella PCR Not detected (Not detect); Sapovirus PCR Not detected (Not detect); Shig/EnteroinvasiveE coli EIEC Not detected (Not detect); Shigalike tox-prod E coli STEC Not detected (Not detect); Vibrio PCR Not detected (Not detect); Vibrio cholerae PCR Not detected (Not detect); Yersinia enterocolitica PCR Not detected (Not detect)
[2019-01-17] MEDS ORDERED: cefTRIAXone 2,000 MG in Water for inj. (sterile) 20 ML IVP SCH (15:00)
[2019-01-17] MEDS: diazePAM 5 MG TABLET PO PRN (20:14)
[2019-01-17] MEDS: traZODone 50 MG TABLET PO SCH (20:14)
[2019-01-17] MEDS: Gabapentin 300 MG CAPSULE PO SCH (20:14)
[2019-01-17] MEDS ORDERED: Insulin DETEMIR 100 UNIT/ML X5UNITS SQ SCH (21:00)
[2019-01-18] MEDS: Levalbuterol Neb 0.63 MG/3 ML IH SCH ×2 (04:30→10:45)
[2019-01-18] MEDS: *HR* Heparin 5,000 UNIT/ML VIAL SQ SCH (05:10)
[2019-01-18 07:46] VITALS: BP 146/83
[2019-01-18] MEDS: Metoprolol XL (24 HR) Succ 50 MG TAB.ER.24H PO SCH (08:23)
[2019-01-18] MEDS: amLODIPine 5 MG TABLET PO SCH (08:23)
[2019-01-18] MEDS: Aspirin Enteric Coated 81 MG Tablet PO SCH (08:23)
[2019-01-18] MEDS: Insulin LISPRO 300 UNITS/3 ML VIAL SQ SCH ×2 (08:24)
[2019-01-18 08:59] LABS: Hematocrit 37.6 % (35.3-44.9); Mean Corpuscular Volume 85.1 fL (83.0-100.0); Mean Platelet Volume 9.7 fL (9.4-12.4); Platelet Count 245 K/mcL (140-400); Red Blood Count 4.42 M/mcL (3.82-4.97); Red Cell Distribution Width 14.4 % (11.5-14.5); White Blood Count 12.5 K/mcL (4.3-11.1)
[2019-01-18 09:03] LABS: Hemoglobin 12.8 g/dL (11.5-15.4)
[2019-01-18 09:17] LABS: BUN/Creatinine Ratio 24 (6-26); Blood Urea Nitrogen 13 mg/dL (6-20); Calcium 8.8 mg/dL (8.6-10.3); Carbon Dioxide 27 mEq/L (23-29); Chloride 97 mEq/L (98-107); Glucose 174 mg/dL (70-105); Osmolality,Calculated 280 (280-300); Potassium 4.1 mEq/L (3.5-5.1); Sodium 133 mEq/L (136-145); eGFR For African Americans > 60 (> 60); eGFR For Non-African Americans > 60 (> 60)
[2019-01-18] MEDS: *HR* OxyCODONE/APAP 5/325 TABLET PO PRN (11:00)
[2019-01-18] MEDS: diazePAM 5 MG TABLET PO PRN (11:00)
== END 2019-01-18 11:44 | disposition home or self-care (01) | DRG 871 ==
LOC: EMEROOARM → 2NENU → SUATTDRO 06:29 → 2NENU 07:45
PROVIDERS: ADMIT Internal Medicine; ATTEND Internal Medicine